=== PATIENT | female | born 1990 | race Native Hawaiian/Other Pacific Islander ===

== ENCOUNTER 2017-12-24 21:51 | Inpatient (IN) | payer OTHER ==
[2017-12-24 22:59] LABS: Hematocrit 38.7 % (30.3-42.9); Hemoglobin 12.6 gm/dl (10.1-14.3); Mean Corpuscular HGB Conc 33 % (30-34); Mean Corpuscular Hemoglobin 30 pg (28-32); Mean Corpuscular Volume 91 fl (79-97); Platelet Count 359 K/mm3 (140-440); Red Blood Count 4.24 M/mm3 (3.65-5.03); Red Cell Distribution Width 13.8 % (13.2-15.2)
[2017-12-24 23:21] LABS: Alanine Aminotransferase 14 units/L (7-56)
[2017-12-24] MEDS ORDERED: MAGNESIUM SULFATE 4GM/100ML 4 GM/100 ML BAG IV ONE (23:36)
[2017-12-24] MEDS ORDERED: BRETHINE SUB-Q PRN (23:36)
[2017-12-24] MEDS ORDERED: CERVIDIL VG ONE (23:36)
[2017-12-24] MEDS ORDERED: XYLOCAINE 2% INFILTRATI ONE (23:36)
[2017-12-24] MEDS ORDERED: ePHEDrine SULFATE IV PRN (23:36)
[2017-12-24] MEDS ORDERED: ZOFRAN IV PRN (23:36)
[2017-12-24] MEDS ORDERED: MINERAL OIL PO PRN (23:36)
[2017-12-24] MEDS ORDERED: APRESOLINE IV PRN (23:36)
[2017-12-24] MEDS ORDERED: PITOCin/NS 30 UNIT/500ML 30 UNITS/500 ML BAG IV SCH (23:45)
[2017-12-24] MEDS ORDERED: SUBLIMAZE IV PRN (23:45)
[2017-12-24] MEDS ORDERED: LACTATED RINGERS 1,000 ML IV SCH (23:45)
[2017-12-24] MEDS ORDERED: PITOCin/NS 20 UNIT/1000ML DRIP 20 UNITS/1,000 ML BAG IV SCH (23:45)
[2017-12-24] MEDS ORDERED: MAGNESIUM SULFATE 40GM/1000ML 40 GM/1,000 ML BAG IV SCH (23:45)
--- NOTE | 2017-12-24 23:49 | History and Physical Report ---
History of Present Illness Date of examination: 12/24/17 Date of admission: 12/24/17 23:32 Chief complaint: SHAVER unrelieved by Tylenol @ 37.6 ( EDC 01/08/18) History of present illness: EDC Calculations by LMP: 01/08/2018 Past History : 3 Term Births: 1 Premature Births: 0 Living Children: 1 Para: 1 Mult. Births: 0 Prev : 0 Aborta: 1 Elect. Ab: 0 Spont. Ab: 1 Ectopics: 0 # 1 Delivery date: 2011 Weeks Gestation: 5 Delivery type: SAB Comments: no D&C # 2 Delivery date: 06/20/2013 Weeks Gestation: 38 2/7 Delivery type: Vaginal Anesthesia type: epidural Delivery location: [facility] Infant Sex: male weight: 6.56 Comments: none Past Medical History: Reviewed history from 11/28/2012 and no changes required: Negative Past Medical History Past Surgical History: Reviewed history from 07/17/2016 and no changes required: negative Past Medical History Anesthesia Complications: negative Anemia: negative Autoimmune Disorder: negative Bleeding Disorder: negative Blood Transfusions: negative Breast Disease: negative Diabetes: negative Heart Disease: negative Hypertension: negative Hepatitis/Liver Disease: negative Kidney Disease/UTI: negative Neurologic/Epilepsy/Migraines: negative Phlebitis/Varicosities: negative Psychiatric: negative Pulmonary Disease/Asthma: negative Thyroid Disease: negative Hospitalizations: negative Surgery (Non-ambulatory analyst): negative Abnormal PAP: negative MOISES Exposure: negative Infertility: negative Uterine Anomaly: negative Uterine Surgery (not C/S): negative Other Gynecologic Problems: negative Social Hx: Patient is no e/t/d Infection History Hx of STD: none HIV Risk Eval: low risk Hepatitis B Risk Eval: low risk Personal hx. of genital herpes: no Partner hx. of genital herpes: no Varicella/Chicken Pox Status: Previous Disease TB Risk: no Genetic History Congenital Heart Defect: Mom: no Dad: no Aubree Disease: Mom: no Dad: no Thalassemia Mom: no Dad: no Neural Tube Defect Mom: no Dad: no Down's Syndrome Mom: no Dad: no Austin-Sachs Mom: no Dad: no Sickle Cell Disease/Trait Mom: no Dad: no Hemophilia Mom: no Dad: no Muscular Dystrophy Mom: no Dad: no Cystic Fibrosis Mom: no Dad: no Colin Chorea Mom: no Dad: no Mental Retardation Mom: no Dad: no Fragile X Mom: no Dad: no Other Genetic/Chromosomal Disorder Mom: no Dad: no Child w/other defect Mom: no Dad: no Enviromental Exposures Xray Exposure: no Medication, drug, or alcohol use since LMP: no Chemical/Other Exposure: no Exposure to Cat Liter: no Current Allergies (reviewed today): No known allergies Past History Past Medical History: no pertinent history Past Surgical History: no surgical history Social history: no significant social history - Obstetrical History Expected Date of Delivery: 01/08/18 Actual Gestation: 38 Week(s) 0 Day(s) : 3 Para: 1 Hx # Term Pregnancies: 1 Number of Pregnancies: 0 Spontaneous Abortions: 1 Induced : 0 Number of Living Children: 1 Medications and Allergies Allergies Allergy/AdvReac Type Severity Reaction Status Date / Time No Known Allergies Allergy Unverified 06/20/13 08:09 Home Medications Medication Instructions Recorded Confirmed Last Taken Type Docusate Sodium [Colace] 100 mg PO BID PRN #30 capsule 06/21/13 Unknown Rx Ibuprofen [Motrin] 800 mg PO TID PRN #30 tablet 06/21/13 Unknown Rx oxyCODONE /ACETAMINOPHEN [Percocet 1 tab PO Q6HR PRN #20 tablet 06/21/13 Unknown Rx 5/325 mg] Review of Systems All systems: negative Eyes: no blurred vision Neurological: headaches - Vital Signs Vital signs: Vital Signs Pulse BP 100 H 178/104 12/24/17 22:12 12/24/17 22:12 Temp Pulse Resp BP Pulse Ox 99.4 F 110 H 18 157/98 12/24/17 22:21 12/24/17 23:25 12/24/17 22:21 12/24/17 23:25 - Physical Exam Breasts: Positive: normal Cardiovascular: Regular rate Lungs: Positive: Clear to auscultation, Normal air movement Abdomen: Positive: normal appearance, soft Genitourinary (Female): Positive: normal external genitalia, normal perenium Vulva: both: normal Vagina: Positive: normal moisture Uterus: Positive: normal size, normal contour Anus/Rectum: Positive: normal perianal skin Extremities: Positive: normal, other (neg clonus). Negative: edema Deep Tendon Reflex Grade: Normal but brisk +3 - Obstetrical FHR: category 1 Uterine Contraction Monitor Mode: External Cervical Dilatation: 1 Cervical Effacement Percentage: 40 station: -3 Uterine Contraction Frequency (min): irreg Uterine Contraction Pattern: Irregular Uterine Tone Measurement Phase: Contraction Uterine Contraction Intensity: Mild Results Result Diagrams: 12/24/17 22:33 12/24/17 22:33 Abnormal lab results 12/24/17 12/24/17 Range/Units 22:33 22:33 WBC 14.7 H (4.5-11.0) K/mm3 Creatinine 0.4 L (0.7-1.2) mg/dL All other labs normal. Assessment and Plan 27y/o @ 37+6 weeks admitted for elevated b/p and SHAVER - Blood work reviewed w/ normal LFTs and platelets. Urine protein <15 . She has had uncomplicated care with this , She did have one diastolic b/p in the 90's a on 12/13/17 but neg urine protein and symptoms, subsequent b/p's diastolic pressure in the 70's. She currently rates SHAVER @ 6/10 after Tylenol and a few hours ago. no epigastric pain or visual changes. No edema or clonus. DTRs 3+. Initial b/p 178/104 followed by serial b/ps 140's-150's/90-100's while in triage. vertex presentation confirmed via u/s. Dr. Bañuelos consulted; plan to admit and induce for pre-e. Plan of care and dx discussed at length with patient and s/o at BS. All questions addressed, both verbalize understanding. - Patient Problems (1) 38 weeks gestation of Current Visit: Yes Status: Acute (2) Pre-eclampsia during in third trimester, antepartum Current Visit: Yes Status: Acute Plan to address problem: Mag sulfate 2gm/hr mag levels q6h strict I&O Cervidil for IOL
[2017-12-24 23:59] LABS: Bilirubin,Urine NEG (Negative); Blood,Urine NEG (Negative); Color,Urine Yellow (Yellow); Protein,Urine <15 mg/dL mg/dL (Negative); Urobilinogen,Urine < 2.0 mg/dL (<2.0); WBC,Urine < 1.0 /HPF (0.0-6.0)
[2017-12-25] MEDS ORDERED: AMBIEN PO PRN (00:30)
[2017-12-25] MEDS: TYLENOL PO PRN ×2 (00:56→16:32)
[2017-12-25] MEDS: NORMOSOL-R PH 7.4 1,000 ML IV SCH ×2 (00:57→12:59)
[2017-12-25 01:04] LABS: Uric Acid 6.3 mg/dL (3.5-7.6)
--- NOTE | 2017-12-25 04:34 | Ultrasound Report ---
FINAL REPORT EXAM: US OB LIMITED HISTORY: presentaion TECHNIQUE: A limited OB sonogram was obtained for evaluation of presentation. FINDINGS: The fetus is in cephalic presentation. The heart is 131 BPM. IMPRESSION: Cephalic presentation. heart rate is 131 BPM.
--- NOTE | 2017-12-25 07:39 | Progress Note ---
Assessment and Plan Pt resting No c/o voiced SHAVER resolved for now BP 129/88 DTRs wnl CTX q2-5 FHR Cat 1 Cervidil to be removed @ noon. Deferred SVE for now. MGSO4 @ 2gm/hr POC reviewed with pt All questions addressed. AM care and diet when cervidil is removed. consulted. Subjective - Subjective Date of service: 12/25/17 (pt states SHAVER is much improved) Patient reports: movement normal Objective - Vital Signs Vital Signs: Vital Signs - 12hr 12/24/17 12/24/17 12/24/17 22:12 22:21 22:23 Temperature 99.4 F Pulse Rate 100 H 102 H Respiratory 18 Rate Blood Pressure 178/104 159/101 O2 Sat by Pulse Oximetry 12/24/17 12/24/17 12/24/17 22:38 22:55 23:09 Temperature Pulse Rate 106 H 108 H 111 H Respiratory Rate Blood Pressure 150/97 148/94 156/94 O2 Sat by Pulse Oximetry 12/24/17 12/25/17 12/25/17 23:25 00:17 00:52 Temperature Pulse Rate 110 H 98 H 118 H Respiratory Rate Blood Pressure 157/98 163/101 145/100 O2 Sat by Pulse Oximetry 12/25/17 12/25/17 12/25/17 00:58 01:08 01:13 Temperature Pulse Rate 112 H 127 H 102 H Respiratory Rate Blood Pressure 142/88 162/99 147/83 O2 Sat by Pulse Oximetry 12/25/17 12/25/17 12/25/17 01:18 01:19 01:23 Temperature Pulse Rate 98 H 96 H 85 Respiratory Rate Blood Pressure 130/85 135/76 O2 Sat by Pulse 97 Oximetry 12/25/17 12/25/17 12/25/17 01:24 01:29 01:34 Temperature Pulse Rate 89 94 H 86 Respiratory Rate Blood Pressure O2 Sat by Pulse 97 96 97 Oximetry 12/25/17 12/25/17 12/25/17 01:39 01:44 01:49 Temperature Pulse Rate 101 H 91 H 88 Respiratory Rate Blood Pressure O2 Sat by Pulse 97 97 97 Oximetry 12/25/17 12/25/17 12/25/17 01:54 01:57 01:59 Temperature Pulse Rate 82 77 104 H Respiratory Rate Blood Pressure 151/85 O2 Sat by Pulse 97 98 Oximetry 12/25/17 12/25/17 12/25/17 02:04 02:09 02:14 Temperature Pulse Rate 102 H 94 H 89 Respiratory Rate Blood Pressure O2 Sat by Pulse 97 97 97 Oximetry 12/25/17 12/25/17 12/25/17 02:19 02:24 02:29 Temperature Pulse Rate 78 86 88 Respiratory Rate Blood Pressure O2 Sat by Pulse 96 98 97 Oximetry 12/25/17 12/25/17 12/25/17 02:34 02:39 02:44 Temperature Pulse Rate 79 72 74 Respiratory Rate Blood Pressure O2 Sat by Pulse 97 95 96 Oximetry 12/25/17 12/25/17 12/25/17 02:49 02:54 02:59 Temperature Pulse Rate 72 89 96 H Respiratory Rate Blood Pressure O2 Sat by Pulse 97 97 98 Oximetry 12/25/17 12/25/17 12/25/17 03:04 03:09 03:14 Temperature Pulse Rate 85 78 87 Respiratory Rate Blood Pressure O2 Sat by Pulse 97 97 97 Oximetry 12/25/17 12/25/17 12/25/17 03:19 03:24 03:29 Temperature Pulse Rate 72 96 H 75 Respiratory Rate Blood Pressure O2 Sat by Pulse 97 98 97 Oximetry 12/25/17 12/25/17 12/25/17 03:34 03:39 03:44 Temperature Pulse Rate 81 83 82 Respiratory Rate Blood Pressure O2 Sat by Pulse 98 98 98 Oximetry 12/25/17 12/25/17 12/25/17 03:49 03:54 03:59 Temperature Pulse Rate 81 82 79 Respiratory Rate Blood Pressure O2 Sat by Pulse 98 98 99 Oximetry 12/25/17 12/25/17 12/25/17 04:04 04:09 04:14 Temperature Pulse Rate 86 92 H 85 Respiratory Rate Blood Pressure O2 Sat by Pulse 99 99 97 Oximetry 12/25/17 12/25/17 12/25/17 04:19 04:24 04:29 Temperature Pulse Rate 83 90 86 Respiratory Rate Blood Pressure O2 Sat by Pulse 98 98 100 Oximetry 12/25/17 12/25/17 12/25/17 04:34 04:36 04:39 Temperature Pulse Rate 94 H 96 H 98 H Respiratory Rate Blood Pressure 138/95 O2 Sat by Pulse 99 100 Oximetry 12/25/17 12/25/17 12/25/17 04:44 04:49 04:54 Temperature Pulse Rate 79 102 H 74 Respiratory Rate Blood Pressure O2 Sat by Pulse 98 99 98 Oximetry 12/25/17 12/25/17 12/25/17 04:57 04:59 05:04 Temperature Pulse Rate 78 72 74 Respiratory Rate Blood Pressure 144/85 O2 Sat by Pulse 97 97 Oximetry 12/25/17 12/25/17 12/25/17 05:09 05:14 05:19 Temperature Pulse Rate 72 87 76 Respiratory Rate Blood Pressure O2 Sat by Pulse 98 97 99 Oximetry 12/25/17 12/25/17 12/25/17 05:24 05:26 05:29 Temperature Pulse Rate 74 86 79 Respiratory Rate Blood Pressure 136/84 O2 Sat by Pulse 98 97 Oximetry 12/25/17 12/25/17 12/25/17 05:34 05:39 05:44 Temperature Pulse Rate 81 77 80 Respiratory Rate Blood Pressure O2 Sat by Pulse 98 98 99 Oximetry 12/25/17 12/25/17 12/25/17 05:49 05:54 05:57 Temperature Pulse Rate 78 104 H 81 Respiratory Rate Blood Pressure 144/89 O2 Sat by Pulse 97 99 Oximetry 12/25/17 12/25/17 12/25/17 05:59 06:04 06:09 Temperature Pulse Rate 98 H 87 88 Respiratory Rate Blood Pressure O2 Sat by Pulse 99 99 100 Oximetry 12/25/17 12/25/17 12/25/17 06:14 06:19 06:24 Temperature Pulse Rate 80 87 76 Respiratory Rate Blood Pressure O2 Sat by Pulse 100 100 98 Oximetry 12/25/17 12/25/17 12/25/17 06:26 06:28 06:29 Temperature Pulse Rate 87 88 76 Respiratory Rate Blood Pressure 154/90 144/87 O2 Sat by Pulse 99 Oximetry 12/25/17 12/25/17 12/25/17 06:34 06:39 06:44 Temperature Pulse Rate 73 82 69 Respiratory Rate Blood Pressure O2 Sat by Pulse 99 99 99 Oximetry 12/25/17 12/25/17 12/25/17 06:49 06:54 06:56 Temperature Pulse Rate 71 93 H 88 Respiratory Rate Blood Pressure 151/94 O2 Sat by Pulse 98 100 Oximetry 12/25/17 12/25/17 12/25/17 06:59 07:04 07:09 Temperature Pulse Rate 82 70 69 Respiratory Rate Blood Pressure O2 Sat by Pulse 98 98 98 Oximetry 12/25/17 12/25/17 12/25/17 07:14 07:19 07:24 Temperature Pulse Rate 70 73 73 Respiratory Rate Blood Pressure O2 Sat by Pulse 98 97 97 Oximetry 12/25/17 12/25/17 12/25/17 07:26 07:29 07:34 Temperature Pulse Rate 74 71 71 Respiratory Rate Blood Pressure 129/81 O2 Sat by Pulse 97 97 Oximetry - Exam Breasts: deferred Cardiovascular: Regular rate Lungs: Normal air movement Abdomen: Present: normal appearance, soft. Absent: distention, tenderness Vulva: both: normal Uterus: Present: normal FHR: auscultation normal, category 1 Uterine Contraction Monitor Mode: External Uterine Contraction Pattern: Irregular Uterine Tone Measurement Phase: Resting Uterine Contraction Intensity: Mild Extremities: normal Deep Tendon Reflex Grade: Normal +2 - Labs Labs: Abnormal Labs 12/24/17 12/24/17 12/25/17 22:33 22:33 06:05 WBC 14.7 H Creatinine 0.4 L Magnesium 5.30 H Lactate Dehydrogenase 500 H Laboratory Results - last 24 hr 12/24/17 12/24/17 12/24/17 22:33 22:33 23:33 WBC 14.7 H RBC 4.24 Hgb 12.6 Hct 38.7 MCV 91 MCH 30 MCHC 33 RDW 13.8 Plt Count 359 Creatinine 0.4 L Estimated GFR > 60 Uric Acid 6.3 Magnesium AST 36 ALT 14 Lactate Dehydrogenase 500 H Urine Color Yellow Urine Turbidity Clear Urine pH 7.0 Ur Specific [place] 1.008 Urine Protein <15 mg/dl Urine Glucose (UA) Neg Urine Ketones Neg Urine Blood Neg Urine Nitrite Neg Urine Bilirubin Neg Urine Urobilinogen < 2.0 Ur Leukocyte Esterase Tr Urine WBC (Auto) < 1.0 Urine RBC (Auto) 1.0 U Epithel Cells (Auto) 9.0 Blood Type Antibody Screen 12/25/17 12/25/17 01:57 06:05 WBC RBC Hgb Hct MCV MCH MCHC RDW Plt Count Creatinine Estimated GFR Uric Acid Magnesium 5.30 H AST ALT Lactate Dehydrogenase Urine Color Urine Turbidity Urine pH Ur Specific [place] Urine Protein Urine Glucose (UA) Urine Ketones Urine Blood Urine Nitrite Urine Bilirubin Urine Urobilinogen Ur Leukocyte Esterase Urine WBC (Auto) Urine RBC (Auto) U Epithel Cells (Auto) Blood Type B POSITIVE Antibody Screen Negative
[2017-12-25] MEDS ORDERED: PITOCin/NS 30 UNIT/500ML 30 UNITS/500 ML BAG IV SCH (12:00)
--- NOTE | 2017-12-25 13:35 | Progress Note ---
Assessment and Plan Pt resting States SHAVER is there but just in the background. SVE 2,50,-2 Cervidil removed. Personal care provided by RN; diet served. Will start pitocin per protocol. MGSO4 continues BPs noted to be labile 140-150/ 90 and some 120s/80s DTRs wnl Re-eval as needed. Subjective - Subjective Date of service: 12/25/17 (delayed entry) Patient reports: movement normal Objective - Vital Signs Vital Signs: Vital Signs - 12hr 12/25/17 12/25/17 12/25/17 01:34 01:39 01:44 Pulse Rate 86 101 H 91 H Blood Pressure O2 Sat by Pulse 97 97 97 Oximetry 12/25/17 12/25/17 12/25/17 01:49 01:54 01:57 Pulse Rate 88 82 77 Blood Pressure 151/85 O2 Sat by Pulse 97 97 Oximetry 12/25/17 12/25/17 12/25/17 01:59 02:04 02:09 Pulse Rate 104 H 102 H 94 H Blood Pressure O2 Sat by Pulse 98 97 97 Oximetry 12/25/17 12/25/17 12/25/17 02:14 02:19 02:24 Pulse Rate 89 78 86 Blood Pressure O2 Sat by Pulse 97 96 98 Oximetry 12/25/17 12/25/17 12/25/17 02:29 02:34 02:39 Pulse Rate 88 79 72 Blood Pressure O2 Sat by Pulse 97 97 95 Oximetry 12/25/17 12/25/17 12/25/17 02:44 02:49 02:54 Pulse Rate 74 72 89 Blood Pressure O2 Sat by Pulse 96 97 97 Oximetry 12/25/17 12/25/17 12/25/17 02:59 03:04 03:09 Pulse Rate 96 H 85 78 Blood Pressure O2 Sat by Pulse 98 97 97 Oximetry 12/25/17 12/25/17 12/25/17 03:14 03:19 03:24 Pulse Rate 87 72 96 H Blood Pressure O2 Sat by Pulse 97 97 98 Oximetry 12/25/17 12/25/17 12/25/17 03:29 03:34 03:39 Pulse Rate 75 81 83 Blood Pressure O2 Sat by Pulse 97 98 98 Oximetry 12/25/17 12/25/17 12/25/17 03:44 03:49 03:54 Pulse Rate 82 81 82 Blood Pressure O2 Sat by Pulse 98 98 98 Oximetry 12/25/17 12/25/17 12/25/17 03:59 04:04 04:09 Pulse Rate 79 86 92 H Blood Pressure O2 Sat by Pulse 99 99 99 Oximetry 12/25/17 12/25/17 12/25/17 04:14 04:19 04:24 Pulse Rate 85 83 90 Blood Pressure O2 Sat by Pulse 97 98 98 Oximetry 12/25/17 12/25/17 12/25/17 04:29 04:34 04:36 Pulse Rate 86 94 H 96 H Blood Pressure 138/95 O2 Sat by Pulse 100 99 Oximetry 12/25/17 12/25/17 12/25/17 04:39 04:44 04:49 Pulse Rate 98 H 79 102 H Blood Pressure O2 Sat by Pulse 100 98 99 Oximetry 12/25/17 12/25/17 12/25/17 04:54 04:57 04:59 Pulse Rate 74 78 72 Blood Pressure 144/85 O2 Sat by Pulse 98 97 Oximetry 12/25/17 12/25/17 12/25/17 05:04 05:09 05:14 Pulse Rate 74 72 87 Blood Pressure O2 Sat by Pulse 97 98 97 Oximetry 12/25/17 12/25/17 12/25/17 05:19 05:24 05:26 Pulse Rate 76 74 86 Blood Pressure 136/84 O2 Sat by Pulse 99 98 Oximetry 12/25/17 12/25/17 12/25/17 05:29 05:34 05:39 Pulse Rate 79 81 77 Blood Pressure O2 Sat by Pulse 97 98 98 Oximetry 12/25/17 12/25/17 12/25/17 05:44 05:49 05:54 Pulse Rate 80 78 104 H Blood Pressure O2 Sat by Pulse 99 97 99 Oximetry 12/25/17 12/25/17 12/25/17 05:57 05:59 06:04 Pulse Rate 81 98 H 87 Blood Pressure 144/89 O2 Sat by Pulse 99 99 Oximetry 12/25/17 12/25/17 12/25/17 06:09 06:14 06:19 Pulse Rate 88 80 87 Blood Pressure O2 Sat by Pulse 100 100 100 Oximetry 12/25/17 12/25/17 12/25/17 06:24 06:26 06:28 Pulse Rate 76 87 88 Blood Pressure 154/90 144/87 O2 Sat by Pulse 98 Oximetry 12/25/17 12/25/17 12/25/17 06:29 06:34 06:39 Pulse Rate 76 73 82 Blood Pressure O2 Sat by Pulse 99 99 99 Oximetry 12/25/17 12/25/17 12/25/17 06:44 06:49 06:54 Pulse Rate 69 71 93 H Blood Pressure O2 Sat by Pulse 99 98 100 Oximetry 12/25/17 12/25/17 12/25/17 06:56 06:59 07:04 Pulse Rate 88 82 70 Blood Pressure 151/94 O2 Sat by Pulse 98 98 Oximetry 12/25/17 12/25/17 12/25/17 07:09 07:14 07:19 Pulse Rate 69 70 73 Blood Pressure O2 Sat by Pulse 98 98 97 Oximetry 12/25/17 12/25/17 12/25/17 07:24 07:26 07:29 Pulse Rate 73 74 71 Blood Pressure 129/81 O2 Sat by Pulse 97 97 Oximetry 12/25/17 12/25/17 12/25/17 07:34 07:39 07:44 Pulse Rate 71 82 73 Blood Pressure O2 Sat by Pulse 97 98 98 Oximetry 12/25/17 12/25/17 12/25/17 07:49 07:54 07:56 Pulse Rate 76 75 93 H Blood Pressure 155/95 O2 Sat by Pulse 98 98 Oximetry 12/25/17 12/25/17 12/25/17 07:59 08:04 08:09 Pulse Rate 77 79 76 Blood Pressure O2 Sat by Pulse 97 97 97 Oximetry 12/25/17 12/25/17 12/25/17 08:14 08:19 08:24 Pulse Rate 73 80 86 Blood Pressure O2 Sat by Pulse 97 97 97 Oximetry 12/25/17 12/25/17 12/25/17 08:27 08:29 08:34 Pulse Rate 81 84 96 H Blood Pressure 123/75 O2 Sat by Pulse 97 100 Oximetry 12/25/17 12/25/17 12/25/17 08:39 08:44 08:49 Pulse Rate 100 H 105 H 108 H Blood Pressure O2 Sat by Pulse 100 100 100 Oximetry 12/25/17 12/25/17 12/25/17 08:54 08:56 08:59 Pulse Rate 91 H 97 H 107 H Blood Pressure 144/91 O2 Sat by Pulse 100 99 Oximetry 12/25/1718 12/25/17 09:04 09:09 09:14 Pulse Rate 104 H 96 H 98 H Blood Pressure O2 Sat by Pulse 97 100 98 Oximetry 12/25/1718 12/25/17 09:19 09:24 09:27 Pulse Rate 99 H 92 H 98 H Blood Pressure 148/91 O2 Sat by Pulse 98 99 Oximetry 12/25/17 12/25/17 12/25/17 09:29 09:34 09:39 Pulse Rate 94 H 107 H 93 H Blood Pressure O2 Sat by Pulse 99 99 97 Oximetry 12/25/1718 12/25/17 09:44 09:49 09:54 Pulse Rate 84 102 H 91 H Blood Pressure O2 Sat by Pulse 97 98 98 Oximetry 12/25/17 12/25/17 12/25/17 09:57 09:59 10:04 Pulse Rate 101 H 109 H 101 H Blood Pressure 150/96 O2 Sat by Pulse 98 98 Oximetry 12/25/17 12/25/17 12/25/17 10:09 10:14 10:19 Pulse Rate 85 88 87 Blood Pressure O2 Sat by Pulse 97 97 97 Oximetry 12/25/17 12/25/17 12/25/17 10:24 10:26 10:29 Pulse Rate 88 101 H 93 H Blood Pressure 144/92 O2 Sat by Pulse 97 96 Oximetry 12/25/17 12/25/17 12/25/17 10:34 10:39 10:44 Pulse Rate 91 H 89 89 Blood Pressure O2 Sat by Pulse 96 96 96 Oximetry 12/25/17 12/25/17 12/25/17 10:49 10:54 10:56 Pulse Rate 87 86 88 Blood Pressure 133/84 O2 Sat by Pulse 96 97 Oximetry 12/25/1718 12/25/17 10:59 11:04 11:09 Pulse Rate 89 89 86 Blood Pressure O2 Sat by Pulse 95 96 96 Oximetry 12/25/1718 12/25/17 11:14 11:19 11:24 Pulse Rate 86 86 87 Blood Pressure O2 Sat by Pulse 96 96 96 Oximetry 12/25/17 12/25/17 12/25/17 11:26 11:29 11:31 Pulse Rate 85 86 88 Blood Pressure 125/80 O2 Sat by Pulse 97 94 Oximetry 12/25/17 12/25/17 12/25/17 11:34 11:39 11:44 Pulse Rate 83 84 110 H Blood Pressure O2 Sat by Pulse 96 97 99 Oximetry 12/25/17 12/25/17 12/25/17 11:49 11:54 11:56 Pulse Rate 109 H 120 H 100 H Blood Pressure 150/92 O2 Sat by Pulse 98 98 Oximetry 12/25/17 12/25/17 12/25/17 11:59 12:04 12:09 Pulse Rate 109 H 99 H 110 H Blood Pressure O2 Sat by Pulse 98 98 98 Oximetry 12/25/17 12/25/17 12/25/17 12:14 12:19 12:24 Pulse Rate 110 H 100 H 98 H Blood Pressure O2 Sat by Pulse 98 98 97 Oximetry 12/25/17 12/25/17 12/25/17 12:27 12:29 12:34 Pulse Rate 107 H 96 H 99 H Blood Pressure 143/98 O2 Sat by Pulse 99 98 Oximetry 12/25/17 12/25/17 12/25/17 12:39 12:44 12:49 Pulse Rate 99 H 107 H 97 H Blood Pressure O2 Sat by Pulse 97 99 98 Oximetry 12/25/17 12/25/17 12/25/17 12:54 12:57 12:59 Pulse Rate 117 H 110 H 115 H Blood Pressure 154/100 O2 Sat by Pulse 98 99 Oximetry 12/25/17 12/25/17 12/25/17 13:02 13:04 13:09 Pulse Rate 117 H 109 H 114 H Blood Pressure 156/103 O2 Sat by Pulse 99 99 Oximetry 12/25/17 12/25/17 12/25/17 13:14 13:19 13:24 Pulse Rate 107 H 110 H 103 H Blood Pressure O2 Sat by Pulse 97 97 98 Oximetry 12/25/17 12/25/17 12/25/17 13:28 13:29 13:34 Pulse Rate 100 H 103 H 117 H Blood Pressure 150/86 O2 Sat by Pulse 98 98 Oximetry - Exam Breasts: deferred Cardiovascular: Regular rate Lungs: Normal air movement Abdomen: Present: normal appearance, soft. Absent: distention, tenderness Vulva: both: normal Uterus: Present: normal FHR: auscultation normal, category 1 Uterine Contraction Monitor Mode: External Cervical Dilatation: 2 (Cervidil removed) Cervical Effacement Percentage: 50 station: -2 Uterine Contraction Pattern: Irregular Uterine Tone Measurement Phase: Resting Uterine Contraction Intensity: Mild - Labs Labs: Abnormal Labs 12/24/17 12/24/17 12/25/17 22:33 22:33 06:05 WBC 14.7 H Creatinine 0.4 L Magnesium 5.30 H Lactate Dehydrogenase 500 H Laboratory Results - last 24 hr 12/24/17 12/24/17 12/24/17 22:33 22:33 23:33 WBC 14.7 H RBC 4.24 Hgb 12.6 Hct 38.7 MCV 91 MCH 30 MCHC 33 RDW 13.8 Plt Count 359 Creatinine 0.4 L Estimated GFR > 60 Uric Acid 6.3 Magnesium AST 36 ALT 14 Lactate Dehydrogenase 500 H Urine Color Yellow Urine Turbidity Clear Urine pH 7.0 Ur Specific [place] 1.008 Urine Protein <15 mg/dl Urine Glucose (UA) Neg Urine Ketones Neg Urine Blood Neg Urine Nitrite Neg Urine Bilirubin Neg Urine Urobilinogen < 2.0 Ur Leukocyte Esterase Tr Urine WBC (Auto) < 1.0 Urine RBC (Auto) 1.0 U Epithel Cells (Auto) 9.0 Blood Type Antibody Screen 12/25/17 12/25/17 01:57 06:05 WBC RBC Hgb Hct MCV MCH MCHC RDW Plt Count Creatinine Estimated GFR Uric Acid Magnesium 5.30 H AST ALT Lactate Dehydrogenase Urine Color Urine Turbidity Urine pH Ur Specific [place] Urine Protein Urine Glucose (UA) Urine Ketones Urine Blood Urine Nitrite Urine Bilirubin Urine Urobilinogen Ur Leukocyte Esterase Urine WBC (Auto) Urine RBC (Auto) U Epithel Cells (Auto) Blood Type B POSITIVE Antibody Screen Negative
--- NOTE | 2017-12-25 16:32 | Progress Note ---
Assessment and Plan BP 155/103 on my arrival to R Pt c/o SHAVER again SVE 4,70,-1 Pit @ 20mu. Pt desires an epidural for pain mgt bolus started. Last Mag level 5.8, pt w/o s/sx of toxicity. given report. Anticipate delivery this evening. Subjective - Subjective Date of service: 12/25/17 Patient reports: new complaints (pt states her SHAVER has returned Asking for Tylenol), movement normal Objective - Vital Signs Vital Signs: Vital Signs - 12hr 12/25/17 12/25/17 12/25/17 04:34 04:36 04:39 Pulse Rate 94 H 96 H 98 H Blood Pressure 138/95 O2 Sat by Pulse 99 100 Oximetry 12/25/17 12/25/17 12/25/17 04:44 04:49 04:54 Pulse Rate 79 102 H 74 Blood Pressure O2 Sat by Pulse 98 99 98 Oximetry 12/25/17 12/25/17 12/25/17 04:57 04:59 05:04 Pulse Rate 78 72 74 Blood Pressure 144/85 O2 Sat by Pulse 97 97 Oximetry 12/25/17 12/25/17 12/25/17 05:09 05:14 05:19 Pulse Rate 72 87 76 Blood Pressure O2 Sat by Pulse 98 97 99 Oximetry 12/25/17 12/25/17 12/25/17 05:24 05:26 05:29 Pulse Rate 74 86 79 Blood Pressure 136/84 O2 Sat by Pulse 98 97 Oximetry 12/25/17 12/25/17 12/25/17 05:34 05:39 05:44 Pulse Rate 81 77 80 Blood Pressure O2 Sat by Pulse 98 98 99 Oximetry 12/25/17 12/25/17 12/25/17 05:49 05:54 05:57 Pulse Rate 78 104 H 81 Blood Pressure 144/89 O2 Sat by Pulse 97 99 Oximetry 12/25/17 12/25/17 12/25/17 05:59 06:04 06:09 Pulse Rate 98 H 87 88 Blood Pressure O2 Sat by Pulse 99 99 100 Oximetry 12/25/17 12/25/17 12/25/17 06:14 06:19 06:24 Pulse Rate 80 87 76 Blood Pressure O2 Sat by Pulse 100 100 98 Oximetry 12/25/17 12/25/17 12/25/17 06:26 06:28 06:29 Pulse Rate 87 88 76 Blood Pressure 154/90 144/87 O2 Sat by Pulse 99 Oximetry 12/25/17 12/25/17 12/25/17 06:34 06:39 06:44 Pulse Rate 73 82 69 Blood Pressure O2 Sat by Pulse 99 99 99 Oximetry 12/25/17 12/25/17 12/25/17 06:49 06:54 06:56 Pulse Rate 71 93 H 88 Blood Pressure 151/94 O2 Sat by Pulse 98 100 Oximetry 12/25/17 12/25/17 12/25/17 06:59 07:04 07:09 Pulse Rate 82 70 69 Blood Pressure O2 Sat by Pulse 98 98 98 Oximetry 12/25/17 12/25/17 12/25/17 07:14 07:19 07:24 Pulse Rate 70 73 73 Blood Pressure O2 Sat by Pulse 98 97 97 Oximetry 12/25/17 12/25/17 12/25/17 07:26 07:29 07:34 Pulse Rate 74 71 71 Blood Pressure 129/81 O2 Sat by Pulse 97 97 Oximetry 12/25/17 12/25/17 12/25/17 07:39 07:44 07:49 Pulse Rate 82 73 76 Blood Pressure O2 Sat by Pulse 98 98 98 Oximetry 12/25/17 12/25/17 12/25/17 07:54 07:56 07:59 Pulse Rate 75 93 H 77 Blood Pressure 155/95 O2 Sat by Pulse 98 97 Oximetry 12/25/17 12/25/17 12/25/17 08:04 08:09 08:14 Pulse Rate 79 76 73 Blood Pressure O2 Sat by Pulse 97 97 97 Oximetry 12/25/17 12/25/17 12/25/17 08:19 08:24 08:27 Pulse Rate 80 86 81 Blood Pressure 123/75 O2 Sat by Pulse 97 97 Oximetry 12/25/17 12/25/17 12/25/17 08:29 08:34 08:39 Pulse Rate 84 96 H 100 H Blood Pressure O2 Sat by Pulse 97 100 100 Oximetry 12/25/17 12/25/17 12/25/17 08:44 08:49 08:54 Pulse Rate 105 H 108 H 91 H Blood Pressure O2 Sat by Pulse 100 100 100 Oximetry 12/25/17 12/25/17 12/25/17 08:56 08:59 09:04 Pulse Rate 97 H 107 H 104 H Blood Pressure 144/91 O2 Sat by Pulse 99 97 Oximetry 12/25/17 12/25/17 12/25/17 09:09 09:14 09:19 Pulse Rate 96 H 98 H 99 H Blood Pressure O2 Sat by Pulse 100 98 98 Oximetry 12/25/17 12/25/17 12/25/17 09:24 09:27 09:29 Pulse Rate 92 H 98 H 94 H Blood Pressure 148/91 O2 Sat by Pulse 99 99 Oximetry 12/25/17 12/25/17 12/25/17 09:34 09:39 09:44 Pulse Rate 107 H 93 H 84 Blood Pressure O2 Sat by Pulse 99 97 97 Oximetry 12/25/17 12/25/17 12/25/17 09:49 09:54 09:57 Pulse Rate 102 H 91 H 101 H Blood Pressure 150/96 O2 Sat by Pulse 98 98 Oximetry 12/25/17 12/25/17 12/25/17 09:59 10:04 10:09 Pulse Rate 109 H 101 H 85 Blood Pressure O2 Sat by Pulse 98 98 97 Oximetry 12/25/17 12/25/17 12/25/17 10:14 10:19 10:24 Pulse Rate 88 87 88 Blood Pressure O2 Sat by Pulse 97 97 97 Oximetry 12/25/17 12/25/17 12/25/17 10:26 10:29 10:34 Pulse Rate 101 H 93 H 91 H Blood Pressure 144/92 O2 Sat by Pulse 96 96 Oximetry 12/25/17 12/25/17 12/25/17 10:39 10:44 10:49 Pulse Rate 89 89 87 Blood Pressure O2 Sat by Pulse 96 96 96 Oximetry 12/25/17 12/25/17 12/25/17 10:54 10:56 10:59 Pulse Rate 86 88 89 Blood Pressure 133/84 O2 Sat by Pulse 97 95 Oximetry 12/25/17 12/25/17 12/25/17 11:04 11:09 11:14 Pulse Rate 89 86 86 Blood Pressure O2 Sat by Pulse 96 96 96 Oximetry 12/25/17 12/25/17 12/25/17 11:19 11:24 11:26 Pulse Rate 86 87 85 Blood Pressure 125/80 O2 Sat by Pulse 96 96 Oximetry 12/25/17 12/25/17 12/25/17 11:29 11:31 11:34 Pulse Rate 86 88 83 Blood Pressure O2 Sat by Pulse 97 94 96 Oximetry 12/25/17 12/25/17 12/25/17 11:39 11:44 11:49 Pulse Rate 84 110 H 109 H Blood Pressure O2 Sat by Pulse 97 99 98 Oximetry 12/25/17 12/25/17 12/25/17 11:54 11:56 11:59 Pulse Rate 120 H 100 H 109 H Blood Pressure 150/92 O2 Sat by Pulse 98 98 Oximetry 12/25/17 12/25/17 12/25/17 12:04 12:09 12:14 Pulse Rate 99 H 110 H 110 H Blood Pressure O2 Sat by Pulse 98 98 98 Oximetry 12/25/17 12/25/17 12/25/17 12:19 12:24 12:27 Pulse Rate 100 H 98 H 107 H Blood Pressure 143/98 O2 Sat by Pulse 98 97 Oximetry 12/25/17 12/25/17 12/25/17 12:29 12:34 12:39 Pulse Rate 96 H 99 H 99 H Blood Pressure O2 Sat by Pulse 99 98 97 Oximetry 12/25/17 12/25/17 12/25/17 12:44 12:49 12:54 Pulse Rate 107 H 97 H 117 H Blood Pressure O2 Sat by Pulse 99 98 98 Oximetry 12/25/17 12/25/17 12/25/17 12:57 12:59 13:02 Pulse Rate 110 H 115 H 117 H Blood Pressure 154/100 156/103 O2 Sat by Pulse 99 Oximetry 12/25/17 12/25/17 12/25/17 13:04 13:09 13:14 Pulse Rate 109 H 114 H 107 H Blood Pressure O2 Sat by Pulse 99 99 97 Oximetry 12/25/1718 12/25/17 13:19 13:24 13:28 Pulse Rate 110 H 103 H 100 H Blood Pressure 150/86 O2 Sat by Pulse 97 98 Oximetry 12/25/1718 12/25/17 13:29 13:34 13:39 Pulse Rate 103 H 117 H 107 H Blood Pressure O2 Sat by Pulse 98 98 98 Oximetry 12/25/17 12/25/17 12/25/17 13:44 13:49 13:54 Pulse Rate 100 H 105 H 98 H Blood Pressure O2 Sat by Pulse 97 97 97 Oximetry 12/25/17 12/25/17 12/25/17 13:56 13:59 14:04 Pulse Rate 100 H 89 92 H Blood Pressure 143/94 O2 Sat by Pulse 97 97 Oximetry 12/25/17 12/25/17 12/25/17 14:09 14:14 14:19 Pulse Rate 91 H 87 94 H Blood Pressure O2 Sat by Pulse 97 97 96 Oximetry 12/25/17 12/25/17 12/25/17 14:24 14:27 14:29 Pulse Rate 89 95 H 88 Blood Pressure 147/93 O2 Sat by Pulse 97 97 Oximetry 12/25/17 12/25/17 12/25/17 14:39 14:44 14:49 Pulse Rate 90 86 107 H Blood Pressure O2 Sat by Pulse 97 97 97 Oximetry 12/25/17 12/25/17 12/25/17 14:54 14:58 14:59 Pulse Rate 98 H 100 H 104 H Blood Pressure 149/92 O2 Sat by Pulse 97 97 Oximetry 12/25/17 12/25/17 12/25/17 15:04 15:09 15:14 Pulse Rate 106 H 93 H 96 H Blood Pressure O2 Sat by Pulse 98 97 98 Oximetry 12/25/17 12/25/17 12/25/17 15:19 15:24 15:27 Pulse Rate 92 H 95 H 99 H Blood Pressure 153/96 O2 Sat by Pulse 98 97 Oximetry 12/25/17 12/25/17 12/25/17 15:29 15:34 15:39 Pulse Rate 95 H 92 H 103 H Blood Pressure O2 Sat by Pulse 97 97 97 Oximetry 12/25/17 12/25/17 12/25/17 15:44 15:49 15:54 Pulse Rate 97 H 95 H 99 H Blood Pressure O2 Sat by Pulse 97 97 97 Oximetry 12/25/17 12/25/17 12/25/17 15:58 15:59 16:04 Pulse Rate 101 H 111 H 99 H Blood Pressure 158/103 O2 Sat by Pulse 98 97 Oximetry 12/25/17 12/25/17 12/25/17 16:09 16:14 16:19 Pulse Rate 104 H 104 H 99 H Blood Pressure O2 Sat by Pulse 97 96 97 Oximetry 12/25/17 12/25/17 12/25/17 16:24 16:28 16:29 Pulse Rate 103 H 114 H 110 H Blood Pressure 145/88 O2 Sat by Pulse 97 98 Oximetry - Exam Breasts: deferred Cardiovascular: Regular rate Lungs: Normal air movement Abdomen: Present: normal appearance, soft. Absent: distention, tenderness Uterus: Present: normal FHR: auscultation normal, category 1 Uterine Contraction Monitor Mode: External Cervical Dilatation: 4 Cervical Effacement Percentage: 70 station: -1 Uterine Contraction Pattern: Regular Uterine Tone Measurement Phase: Resting Uterine Contraction Intensity: Moderate Extremities: normal Deep Tendon Reflex Grade: Normal +2 - Labs Labs: Abnormal Labs 12/24/17 12/24/17 12/25/17 22:33 22:33 06:05 WBC 14.7 H Creatinine 0.4 L Magnesium 5.30 H Lactate Dehydrogenase 500 H 12/25/17 13:04 WBC Creatinine Magnesium 5.80 H Lactate Dehydrogenase Laboratory Results - last 24 hr 12/24/17 12/24/17 12/24/17 22:33 22:33 23:27 WBC 14.7 H RBC 4.24 Hgb 12.6 Hct 38.7 MCV 91 MCH 30 MCHC 33 RDW 13.8 Plt Count 359 Creatinine 0.4 L Estimated GFR > 60 Uric Acid 6.3 Magnesium AST 36 ALT 14 Lactate Dehydrogenase 500 H Urine Color Urine Turbidity Urine pH Ur Specific [place] Urine Protein Urine Glucose (UA) Urine Ketones Urine Blood Urine Nitrite Urine Bilirubin Urine Urobilinogen Ur Leukocyte Esterase Urine WBC (Auto) Urine RBC (Auto) U Epithel Cells (Auto) RPR Nonreactive Blood Type Antibody Screen 12/24/17 12/25/17 12/25/17 23:33 01:57 06:05 WBC RBC Hgb Hct MCV MCH MCHC RDW Plt Count Creatinine Estimated GFR Uric Acid Magnesium 5.30 H AST ALT Lactate Dehydrogenase Urine Color Yellow Urine Turbidity Clear Urine pH 7.0 Ur Specific [place] 1.008 Urine Protein <15 mg/dl Urine Glucose (UA) Neg Urine Ketones Neg Urine Blood Neg Urine Nitrite Neg Urine Bilirubin Neg Urine Urobilinogen < 2.0 Ur Leukocyte Esterase Tr Urine WBC (Auto) < 1.0 Urine RBC (Auto) 1.0 U Epithel Cells (Auto) 9.0 RPR Blood Type B POSITIVE Antibody Screen Negative 12/25/17 13:04 WBC RBC Hgb Hct MCV MCH MCHC RDW Plt Count Creatinine Estimated GFR Uric Acid Magnesium 5.80 H AST ALT Lactate Dehydrogenase Urine Color Urine Turbidity Urine pH Ur Specific [place] Urine Protein Urine Glucose (UA) Urine Ketones Urine Blood Urine Nitrite Urine Bilirubin Urine Urobilinogen Ur Leukocyte Esterase Urine WBC (Auto) Urine RBC (Auto) U Epithel Cells (Auto) RPR Blood Type Antibody Screen
[2017-12-25] MEDS ORDERED: STADOL ONE (17:59)
[2017-12-25] MEDS ORDERED: STADOL IV ONE (18:00)
--- NOTE | 2017-12-25 18:18 | Procedure Note ---
OB Delivery Note - Delivery Date of Delivery: 12/25/17 Surgeon: KARL DE LA TORRE Estimated blood loss: 300cc - Vaginal Delivery presentation: vertex Delivery position: OA Intrapartum events: precipitous labor- <3hr Delivery induction: cervidil Delivery augmentation: pitocin Delivery monitor: external FHT, external uterine Route of delivery: Delivery placenta: spontaneous Delivery cord: 3 umbilical vessels Episiotomy: none Delivery laceration: 1st degree (perineal-not bleeding so no repairs done), 2nd degree (periurethral bilateral with right one repaired -repaired; left labial repaired) Delivery repair: vicryl (2-0) Anesthesia: local (lidocaine 2% with epi) Delivery comments: pt progressed to c/c/vtx/2+ within 20min of AROM at which time she was 5cm. Delivery as above w/o complications. No shoulder dystocia or nuchal cord noted. was placed on maternal abdomen. EBL 300ml. - A at 1 minute: 8 at 5 minutes: 9 Infant Gender: Male (6lbs 2oz)
[2017-12-25] MEDS ORDERED: BENADRYL PO PRN (18:21)
[2017-12-25] MEDS ORDERED: TUCKS PAD TP PRN (18:21)
[2017-12-25] MEDS ORDERED: MILK OF MAGNESIA PO PRN (18:21)
[2017-12-25] MEDS ORDERED: LANSINOH TP PRN (18:21)
[2017-12-25] MEDS ORDERED: DULCOLAX PR PRN (18:21)
[2017-12-25] MEDS ORDERED: SODIUM CHLORIDE FLUSH SYRINGE 10 ML IV NR (19:00)
[2017-12-25] MEDS ORDERED: PITOCin/NS 20 UNIT/1000ML DRIP 20,000 MILLIUNITS/1,000 ML BAG IV ONE (19:35)
[2017-12-25] MEDS: MOTRIN PO SCH (20:59)
[2017-12-25] MEDS ORDERED: DERMOPLAST TP PRN (23:31)
[2017-12-26 05:41] LABS: Hematocrit 25.7 % (30.3-42.9); Hemoglobin 8.6 gm/dl (10.1-14.3)
--- NOTE | 2017-12-26 06:39 | Progress Note ---
Assessment and Plan - Patient Problems (1) Spontaneous vaginal delivery Onset Date: ~12/26/17 Current Visit: Yes Status: Acute Plan to address problem: Pt resting quietly FF below umb Lochia small Perineum slight swelling intact H& H 05/31 drop r/t blood loss from delivery No s/sx of anemia reported. Doing well s/p vag del PreE on MGSO4 P: continue pathway Complete 24hr MGSO4 Cont. close observation of BPs. to be consulted. (2) Pre-eclampsia during in third trimester, antepartum Onset Date: ~12/26/17 Current Visit: Yes Status: Acute Plan to address problem: BP 150-120/80 Pt denies SHAVER, blurred vision, chest pain. Adequate urine output. Mag level 6.1 MGSO4 decreased to 1gm/hr Will closely monitor BPs MGSO4 due to be d/c @ 1800. All questions and POC discussed with pt and SO. Subjective - Subjective Date of service: 12/26/17 (pt w/o complaint; no SHAVER, blurred vision, chest pain) Principal diagnosis: S/P PreE MGSO4 due to be d/c @ 1800 Patient reports: appetite normal, voiding normally (clear yellow urine Out put this shift 1200cc), pain well controlled : doing well Objective - Vital Signs Latest vital signs: Vital Signs Temp Pulse Resp BP BP Pulse Ox 12/26/17 04:00 98.6 F 77 16 138/82 12/26/17 00:00 98.6 F 101 H 16 152/88 12/25/17 21:59 18 12/25/17 20:59 18 12/25/17 20:30 98.6 F 88 16 128/87 12/25/17 19:46 111 H 99 12/25/17 19:41 97 H 97 12/25/17 19:38 98.0 F 18 12/25/17 19:36 98 H 98 12/25/17 19:26 96 H 125/78 12/25/17 18:56 110 H 132/84 12/25/17 18:26 106 H 137/92 12/25/17 18:19 98 H 133/93 12/25/17 17:56 106 H 137/84 12/25/17 17:39 120 H 99 12/25/17 17:34 123 H 99 12/25/17 17:29 123 H 99 03/21/18 17:27 109 H 142/86 03/21/18 17:24 111 H 98 03/21/18 17:19 108 H 98 03/21/18 17:14 112 H 99 03/21/18 17:09 116 H 100 03/21/18 17:04 94 H 97 03/21/18 16:59 103 H 98 03/21/18 16:56 104 H 137/79 03/18 16:54 103 H 98 03/21/18 16:49 102 H 98 03/21/18 16:44 102 H 98 03/21/18 16:39 98 H 98 03/21/18 16:34 111 H 98 0321/18 16:29 110 H 98 03/21/18 16:28 114 H 145/88 03/18 16:24 103 H 97 03/21/18 16:19 99 H 97 03/18 16:14 104 H 96 0321/18 16:09 104 H 97 03/18 16:04 99 H 97 03/18 16:00 98.7 F 18 12/25/18 15:59 111 H 98 03/21/18 15:58 101 H 158/103 03/21/18 15:54 99 H 97 03/21/18 15:49 95 H 97 03/21/18 15:44 97 H 97 03/21/18 15:39 103 H 97 0321/18 15:34 92 H 97 03/21/18 15:29 95 H 97 03/21/18 15:27 99 H 153/96 03/21/18 15:24 95 H 97 03/21/18 15:19 92 H 98 03/21/18 15:14 96 H 98 0321/18 15:09 93 H 97 03/21/18 15:04 106 H 98 03/21/18 14:59 104 H 97 03/21/18 14:58 100 H 149/92 03/21/18 14:54 98 H 97 03/21/18 14:49 107 H 97 03/21/18 14:44 86 97 03/21/18 14:39 90 97 03/21/18 14:29 88 97 03/21/18 14:27 95 H 147/93 03/21/18 14:24 89 97 03/21/18 14:19 94 H 96 03/21/18 14:14 87 97 03/21/18 14:09 91 H 97 03/21/18 14:04 92 H 97 03/21/18 13:59 89 97 03/21/18 13:56 100 H 143/94 03/21/18 13:54 98 H 97 03/21/18 13:49 105 H 97 03/21/18 13:44 100 H 97 03/21/18 13:39 107 H 98 03/21/18 13:34 117 H 98 03/21/18 13:29 103 H 98 03/21/18 13:28 100 H 150/86 03/21/18 13:24 103 H 98 03/21/18 13:19 110 H 97 03/21/18 13:14 107 H 97 03/21/18 13:09 114 H 99 03/21/18 13:04 109 H 99 03/21/18 13:02 117 H 156/103 03/21/18 12:59 115 H 99 03/21/18 12:57 110 H 154/100 03/21/18 12:54 117 H 98 03/21/18 12:49 97 H 98 03/21/18 12:44 107 H 99 03/21/18 12:39 99 H 97 03/21/18 12:34 99 H 98 03/21/18 12:29 96 H 99 03/21/18 12:27 107 H 143/98 03/21/18 12:24 98 H 97 03/21/18 12:19 100 H 98 03/21/18 12:14 110 H 98 03/21/18 12:09 110 H 98 03/21/18 12:04 99 H 98 03/21/18 11:59 109 H 98 03/21/18 11:56 100 H 150/92 03/21/18 11:54 120 H 98 03/21/18 11:49 109 H 98 03/21/18 11:44 110 H 99 03/21/18 11:39 84 97 03/21/18 11:34 83 96 03/21/18 11:31 88 94 03/21/18 11:30 98.8 F 18 03/21/18 11:29 86 97 03/21/18 11:26 85 125/80 03/21/18 11:24 87 96 03/21/18 11:19 86 96 03/21/18 11:14 86 96 03/21/18 11:09 86 96 03/21/18 11:04 89 96 03/21/18 10:59 89 95 03/21/18 10:56 88 133/84 03/21/18 10:54 86 97 03/21/18 10:49 87 96 03/21/18 10:44 89 96 03/21/18 10:39 89 96 03/21/18 10:34 91 H 96 03/21/18 10:29 93 H 96 03/21/18 10:26 101 H 144/92 03/21/18 10:24 88 97 03/21/18 10:19 87 97 03/21/18 10:14 88 97 03/21/18 10:09 85 97 03/21/18 10:04 101 H 98 03/21/18 09:59 109 H 98 03/21/18 09:57 101 H 150/96 03/21/18 09:54 91 H 98 03/21/18 09:49 102 H 98 03/21/18 09:44 84 97 03/21/18 09:39 93 H 97 03/21/18 09:34 107 H 99 03/21/18 09:29 94 H 99 03/21/18 09:27 98 H 148/91 03/21/18 09:24 92 H 99 03/21/18 09:19 99 H 98 03/21/18 09:14 98 H 98 03/21/18 09:09 96 H 100 03/21/18 09:04 104 H 97 03/21/18 08:59 107 H 99 03/21/18 08:56 97 H 144/91 03/21/18 08:54 91 H 100 03/21/18 08:49 108 H 100 03/21/18 08:44 105 H 100 03/21/18 08:39 100 H 100 03/21/18 08:34 96 H 100 03/21/18 08:29 84 97 03/21/18 08:27 81 123/75 03/21/18 08:24 86 97 03/21/18 08:19 80 97 03/21/18 08:14 73 97 03/21/18 08:09 76 97 03/21/18 08:04 79 97 12/25/17 07:59 77 97 12/25/17 07:56 93 H 155/95 12/25/17 07:54 75 98 12/25/17 07:49 76 98 12/25/17 07:44 73 98 12/25/17 07:39 82 98 12/25/17 07:34 71 97 12/25/17 07:29 71 97 12/25/17 07:26 74 129/81 12/25/17 07:24 73 97 12/25/17 07:19 73 97 12/25/17 07:15 98.4 F 16 12/25/17 07:14 70 98 12/25/17 07:09 69 98 12/25/17 07:04 70 98 12/25/17 06:59 82 98 12/25/17 06:56 88 151/94 12/25/17 06:54 93 H 100 12/25/17 06:49 71 98 12/25/17 06:44 69 99 12/25/17 06:39 82 99 Intake and Output 12/25/17 12/25/17 12/26/17 14:59 22:59 06:59 Intake Total 1426.400 12 Output Total 1250 1225 1200 Balance 176.400 -1213 -1200 Intake: IV 1006.400 12 Normosol-R pH 7.4 1,000 1000 ml @ 125 mls/hr IV DIRECT [facility] Rx#:[id number] PITOCin/NS 30 UNIT/500ML 6.400 12 30 units In 500 ml @ 4 MILLIUNITS/MIN 4 mls/hr IV Q30MIN [facility] Rx#: [id number] Oral 420 Output: Urine 1250 1225 1200 Indwelling Catheter 1250 1225 1200 Other: Total, Intake Amount 420 Total, Output Amount 650 200 800 Estimated Blood Loss 300 - Exam Breasts: Present: normal Cardiovascular: Present: Regular rate Lungs: Present: Clear to auscultation, Normal air movement Abdomen: Present: normal appearance, soft, normal bowel sounds Vulva: right: laceration/episiotomy (slight sweintact), both: normal Uterus: Present: normal, firm, fundal height below umbilicus Extremities: Present: normal Deep Tendon Reflex Grade: Normal +2 Incision: Present: normal, dry, intact - Labs Labs: Abnormal lab results 12/25/17 12/25/1718 Range/Units 13:04 19:15 00:51 Hgb (10.1-14.3) gm/dl Hct (30.3-42.9) % Magnesium 5.80 H 5.70 H 6.00 H (1.7-2.3) mg/dL 12/26/17 12/26/17 Range/Units 04:54 04:54 Hgb 8.6 L D (10.1-14.3) gm/dl Hct 25.7 L D (30.3-42.9) % Magnesium 6.10 H (1.7-2.3) mg/dL
[2017-12-26] MEDS: MOTRIN PO SCH ×3 (08:58→23:16)
[2017-12-26] MEDS: NORCO 5/325 PO PRN (08:59)
[2017-12-26] MEDS ORDERED: NACL 0.9% 1000 ML 1,000 ML IV SCH (10:30)
[2017-12-26] MEDS ORDERED: HEMABATE IM ONE (17:29)
[2017-12-26] MEDS ORDERED: BOOSTRIX IM ONE (18:21)
[2017-12-26] MEDS ORDERED: CYTOTEC PR ONE (19:50)
[2017-12-26] MEDS ORDERED: LOMOTIL PO PRN (19:50)
--- NOTE | 2017-12-26 19:59 | Progress Note ---
Assessment and Plan - Patient Problems (1) bleeding Current Visit: Yes Status: Acute Qualifiers: hemorrhage type: delayed hemorrhage Qualified Code(s) : O72.2 - Delayed and secondary hemorrhage Plan to address problem: Will proceed with cytotec LA and repeat CBC now. Explained possible uterine atony. Dr. Ruiz's note, no mention of vaginal/cervical lacerations. Discussed cytotec and plan to evaluate blood count, may need PRBC transfusion and or D&C. Questiosn were encouraged and answered, she voiced understanding and agree and plan. (2) Pre-eclampsia during in third trimester, antepartum Onset Date: ~12/26/17 Current Visit: Yes Status: Acute (3) Spontaneous vaginal delivery Onset Date: ~12/26/17 Current Visit: Yes Status: Acute Subjective - Subjective Date of service: 12/26/17 Principal diagnosis: S/P PreE MGSO4 due to be d/c @ 1800 Interval history: Vaginal bleeding, received call ~1700 from RN stating patient had heavy bleeding ~1430 today that resolved, now she's had another episode of bleeding. States patient was evaluated by L&D NAKUL Hoffmann now fundus firm and no bleeding. No mention ws made by CNM of bleeding today. Patient is now resting in bed with family present, she received Hemabate IM and c/o diarrhea. Bleeding better, noticed some clots when she went to the bathroom, she denies dizziness or lightheadedness with ambulation. Objective - Vital Signs Latest vital signs: Vital Signs Temp Pulse Resp BP BP Pulse Ox 12/26/17 16:40 98.2 F 108 H 18 133/90 98 12/26/17 14:33 99.4 F 112 H 20 139/97 97 12/26/17 12:05 98.3 F 94 H 20 142/98 99 12/26/17 10:16 98.6 F 109 H 18 150/95 98 12/26/17 08:36 98.3 F 96 H 20 145/91 97 12/26/17 04:00 98.6 F 77 16 138/82 12/26/17 00:00 98.6 F 101 H 16 152/88 12/25/17 21:59 18 12/25/17 20:59 18 12/25/17 20:30 98.6 F 88 16 128/87 Intake and Output 12/26/17 12/26/17 12/26/17 06:59 14:59 22:59 Intake Total 600 Output Total 1800 Balance -1800 600 Intake: Oral 600 Output: Urine 1800 Indwelling Catheter 1800 Other: Total, Intake Amount 240 Total, Output Amount 600 - Exam Vulva: both: normal (small amount of blood on pad, no active bleeding noted. ) Uterus: Present: firm, fundal height above umbilicus Extremities: Present: normal. Absent: tenderness, edema - Labs Labs: Abnormal lab results 12/25/17 12/26/17 12/26/17 Range/Units 19:15 00:51 04:54 Hgb (10.1-14.3) gm/dl Hct (30.3-42.9) % Magnesium 5.70 H 6.00 H 6.10 H (1.7-2.3) mg/dL 12/26/17 12/26/17 12/26/17 Range/Units 04:54 12:59 17:34 Hgb 8.6 L D (10.1-14.3) gm/dl Hct 25.7 L D (30.3-42.9) % Magnesium 4.40 H 4.00 H (1.7-2.3) mg/dL
[2017-12-26 20:02] LABS: Hematocrit 23.2 % (30.3-42.9); Hemoglobin 7.5 gm/dl (10.1-14.3); Mean Corpuscular HGB Conc 32 % (30-34); Mean Corpuscular Hemoglobin 30 pg (28-32); Mean Corpuscular Volume 91 fl (79-97); Platelet Count 256 K/mm3 (140-440); Red Blood Count 2.54 M/mm3 (3.65-5.03); Red Cell Distribution Width 14.1 % (13.2-15.2)
[2017-12-26] MEDS ORDERED: CYTOTEC ONE (21:12)
--- NOTE | 2017-12-26 21:52 | Event Note ---
Date: 12/26/17 Cytotec placed by RN, patient resting in bed, states she just went to the bathroom and no bleeding, again denies lightheadedness or dizziness with ambulation. CBC noted.No obvious evidence of infection, elevated wbc ? d/t demargination from delivery. Will recheck CBC in am. Observe closely. Patient and voiced understanding and agree with plan of care
[2017-12-27] MEDS: NORCO 5/325 PO PRN ×3 (03:32→18:23)
[2017-12-27] MEDS: MOTRIN PO SCH ×3 (05:15→18:23)
[2017-12-27 05:24] LABS: Hemoglobin 6.6 gm/dl (10.1-14.3); Mean Corpuscular HGB Conc 33 % (30-34); Mean Corpuscular Hemoglobin 30 pg (28-32); Mean Corpuscular Volume 90 fl (79-97); Platelet Count 242 K/mm3 (140-440); Red Blood Count 2.22 M/mm3 (3.65-5.03); Red Cell Distribution Width 13.9 % (13.2-15.2)
[2017-12-27] MEDS ORDERED: NACL 0.9% 500 ML 500 ML IV ONE (05:54)
--- NOTE | 2017-12-27 07:25 | Progress Note ---
Assessment and Plan - Patient Problems (1) bleeding Current Visit: Yes Status: Acute Qualifiers: hemorrhage type: delayed hemorrhage Qualified Code(s) : O72.2 - Delayed and secondary hemorrhage (2) Pre-eclampsia during in third trimester, antepartum Onset Date: ~12/26/17 Current Visit: Yes Status: Acute (3) Spontaneous vaginal delivery Onset Date: ~12/26/17 Current Visit: Yes Status: Acute (4) Anemia Current Visit: Yes Status: Acute Qualifiers: Other causes of anemia: acute posthemorrhagic Plan to address problem: Fundus now below umbilicus, patient stable, no evidence of active bleeding now, will proceed with PRBC transfusion 2u, observe closely. Plan of care explained, questions answered, she agrees with plan of care. Subjective - Subjective Principal diagnosis: S/P PreE MGSO4 due to be d/c @ 1800 Interval history: Patient resting in bed, alert and appropriately responsive, states bleeding has been much better since receiving hemabate and cytotec. States bleeding intermittent like a period. Denies lightheadedness or dizziness with ambulation in her room. Patient reports: appetite normal, ambulating normally Objective - Vital Signs Latest vital signs: Vital Signs Temp Pulse Resp BP BP Pulse Ox 12/27/17 04:20 98.6 F 104 H 18 148/93 12/27/17 03:32 20 12/27/17 00:00 98.7 F 102 H 16 136/89 12/26/17 20:30 98.6 F 108 H 18 147/88 12/26/17 16:40 98.2 F 108 H 18 133/90 98 12/26/17 14:33 99.4 F 112 H 20 139/97 97 12/26/17 12:05 98.3 F 94 H 20 142/98 99 12/26/17 10:16 98.6 F 109 H 18 150/95 98 12/26/17 08:36 98.3 F 96 H 20 145/91 97 Intake and Output 12/26/17 12/27/17 12/27/17 22:59 06:59 14:59 Intake Total 300 300 Balance 300 300 Intake: Intake, Free Water 300 300 Other: # Voids Void 1 1 # Bowel Movements 1 - Exam Abdomen: Present: normal appearance, soft Uterus: Present: firm, fundal height below umbilicus. Absent: tenderness Extremities: Present: normal. Absent: tenderness, edema - Labs Labs: Abnormal lab results 12/25/17 12/26/17 12/26/17 Range/Units 01:57 12:59 17:34 WBC (4.5-11.0) K/mm3 RBC (3.65-5.03) M/mm3 Hgb (10.1-14.3) gm/dl Hct (30.3-42.9) % Magnesium 4.40 H 4.00 H (1.7-2.3) mg/dL Crossmatch See Detail 12/26/17 12/27/17 Range/Units 19:53 04:48 WBC 20.0 H 18.4 H (4.5-11.0) K/mm3 RBC 2.54 L 2.22 L (3.65-5.03) M/mm3 Hgb 7.5 L 6.6 L (10.1-14.3) gm/dl Hct 23.2 L 20.0 L (30.3-42.9) % Magnesium (1.7-2.3) mg/dL Crossmatch
[2017-12-27] MEDS ORDERED: NACL 0.9% 500 ML 500 ML IV NR (08:00)
--- NOTE | 2017-12-27 08:34 | Event Note ---
Date: 12/27/17 (tin worker note) Patient doing well, no additional vaginal bleeding since cytotec was placed. Fundus firm and below U. pt infant without concerns. Patient denies feeling lightheaded or dizzy with ambulation. Nurses preparing to begin transfusion. pt encouraged to report any increase in lochia to nurses. All questions addressed, verbalized understanding.
[2017-12-27 16:40] LABS: Hemoglobin 10.1 gm/dl (10.1-14.3)
[2017-12-27 16:41] LABS: Hematocrit 30.7 % (30.3-42.9)
[2017-12-28] MEDS: MOTRIN PO SCH ×3 (00:28→12:45)
[2017-12-28 06:02] LABS: Hematocrit 28.4 % (30.3-42.9); Hemoglobin 9.2 gm/dl (10.1-14.3)
[2017-12-28] MEDS ORDERED: NORMODYNE PO SCH (11:03)
--- NOTE | 2017-12-28 12:34 | Discharge Summary ---
Providers - Providers Date of Admission: 12/24/17 23:32 Date of discharge: 12/28/17 Attending physician: JOHN CRAWFORD Primary care physician: JOHN CRAWFORD Hospitalization Condition: Good Procedures: ; Transfusion 2u PRBC's Hospital course: Patient presented with elevated BP's, she was diagnosed with Preeclampsia and induced. She has with PP bleeding on PPD #1 that resolved with Hemabate and cytoted. Her h/h decreased from 12 to 6 and she received 2u PRBCs. This am patient desires d/c amilcar, states bleeding normal PP lochia now, denies SHAVER or visual changes. Disposition: DC- TO HOME OR SELFCARE - Discharge Diagnoses (1) bleeding Status: Acute Qualifiers: hemorrhage type: delayed hemorrhage Qualified Code(s) : O72.2 - Delayed and secondary hemorrhage (2) Pre-eclampsia during in third trimester, antepartum Status: Acute (3) Spontaneous vaginal delivery Status: Acute (4) Anemia Status: Acute Qualifiers: Other causes of anemia: acute posthemorrhagic Core Measure Documentation - Palliative Care Palliative Care/ Comfort Measures: Not Applicable - Core Measures Any of the following diagnoses?: none Exam - Constitutional Vitals: Temp Pulse Resp BP Pulse Ox 97.4 F L 91 H 20 148/89 98 12/28/17 08:42 12/28/17 08:42 12/28/17 08:42 12/28/17 08:42 12/28/17 08:42 General appearance: Present: no acute distress - Respiratory Respiratory effort: normal - Extremities Extremities: no ischemia, No edema - Integumentary Integumentary: Present: clear, warm, dry - Psychiatric Psychiatric: appropriate mood/affect Plan Activity: other (Check BP twice a day, call if systolic OW=587 or diastolic BP= 100, ) Weight Bearing Status: Full Weight Bearing Diet: regular Special Instructions: no heavy lifting (>25#, call office for any heavy bleeding or concerns) Follow up with: KARL DE LA TORRE MD [Staff Physician] - 12/30/17 3:00 pm Prescriptions: Labetalol [Normodyne TAB] 200 mg PO BID #30 tablet Lidocain2.5%/Prilocai2.5% [Emla] 2 gm TP ONCE #1 tube
[2017-12-28 12:52] VITALS: BP 146/90
== END 2017-12-28 14:00 | disposition home or self-care (01) | DRG 774 ==
LOC: TRG 21:51 → LD 23:32 → OB 12-25 20:45
PROVIDERS: ADMIT Obstetrics & Gynecology; ATTEND Obstetrics & Gynecology
PROC: 10E0XZZ Delivery of Products of Conception, External Approach (ICD-10-PCS; principal; 2017-12-25)
PROC: 0KQM0ZZ Repair Perineum Muscle, Open Approach (ICD-10-PCS; 2017-12-25)
PROC: 3E0P7VZ Introduction of Hormone into Female Reproductive, Via Natural or Artificial Opening (ICD-10-PCS; 2017-12-25)
PROC: 10907ZC Drainage of Amniotic Fluid, Therapeutic from Products of Conception, Via Natural or Artificial Opening (ICD-10-PCS; 2017-12-25)
PROC: 3E0P7VZ Introduction of Hormone into Female Reproductive, Via Natural or Artificial Opening (ICD-10-PCS; 2017-12-27)
PROC: 30233N1 Transfusion of Nonautologous Red Blood Cells into Peripheral Vein, Percutaneous Approach (ICD-10-PCS; 2017-12-27)
DX: O14.94 Unspecified pre-eclampsia, complicating childbirth (principal); O72.1 Other immediate postpartum hemorrhage; D62 Acute posthemorrhagic anemia; O62.3 Precipitate labor; O90.81 Anemia of the puerperium; Z3A.38 38 weeks gestation of pregnancy; Z37.0 Single live birth; O70.1 Second degree perineal laceration during delivery
CPT/HCPCS: 36415; 76815; 81001; 82565; 83615; 83735; 84450; 84460; 84550; 85014; 85018; 85027; 86592; 86850; 86900; 86901; 86920; 88307; 99211; G0463; J0595; J2590; J3475; J7030; J7040; P9016